=== PATIENT | female | born 1980 | race Caucasian/White ===

== ENCOUNTER → 2019-04-17 13:25 | Outpatient (CLI) | payer OTHER, SELFPAY | PROVIDERS: PCP Family Medicine; Visit Provider Family Medicine | DX: M54.12 Radiculopathy, cervical region (principal) | CPT/HCPCS: 95885; 95886; 95911 ==

== ENCOUNTER 2019-06-24 08:46 | Outpatient (CLI) | payer OTHER, SELFPAY ==
[2019-06-24] VITALS (9 sets, daily range): BP systolic 109–143; BP diastolic 83–95; PULSE 71–90; RESP 16–20; TEMP 36.2; O2SAT 97–100
--- NOTE | 2019-06-24 08:56 | DI.RAD.S_ITS ---
PROCEDURE: PAIN C/T FACET INJ/BLK 1ST L INDICATIONS: HEADACHES FINDINGS: Fluoroscopic spot filming was performed to verify placement of spinal needles at the C4-C5 and C5-C6 level(s), as labeled on the films. Appropriate location(s) of the needle tip(s) was confirmed by injection of iodinated contrast. IMPRESSION: Fluoroscopy for pain management. Dictated by: Donovan Bryson M.D. on 06/24/2019 at 10:28 Approved by: Donovan Bryson M.D. on 06/24/2019 at 10:29
[2019-06-24] MEDS: fentaNYL 100 MCG/2 ML INJ 50 MCG IV (09:52)
[2019-06-24] MEDS: MIDAZOLAM 5 MG/5 ML VIAL IV (09:52)
[2019-06-24] MEDS: BUPIVACAINE 0.5% (PF) VIAL 2 ML INJ (10:04)
[2019-06-24] MEDS: DEXAMETHASONE 10 MG/ML VIAL 20 MG INJ (10:04)
[2019-06-24] MEDS: IOPAMIDOL 15 ML VIAL 3 ML INJ (10:04)
--- NOTE | 2019-06-24 10:05 | PC.NURSE ---
ASSISTING PT OFF TABLE AND TRANSPORTING TO POST PROC AREA IN STABLE CONDITION. PASSING RN CARE OF PT OFF TO ROSLYN Craig RN.
--- NOTE | 2019-06-24 10:10 | P.PCN_ITS ---
Procedures Date/Time Date of procedure: 06/24/19 Time of procedure: 10:10 General Procedure description: PREOP DIAGNOSIS 1. FACET ARTHROPATHY 2. AXIAL NECK PAIN POST OP DIAGNOSIS 1. FACET ARTHROPATHY 2. AXIAL NECK PAIN PROCEDURES 1. FLUOROSCOPICALLY GUIDED, CONTRAST-CONTROLLED LEFT C4/5, C5/6 FACET JOINT INJECTIONS PHYSICIAN: Doron Hernandez, DO INDICATIONS Lora is referred by Dr. Sykes for treatment of Axial Neck Pain DESCRIPTION OF PROCEDURE Fluoroscopically guided, contrast-controlled left C4/5, C5/6 facet joint injections with conscious sedation. Following review of allergy and review of potential side effects and complications, including, but not necessarily limited to, infection, allergic reaction, local tissue breakdown, stroke, temporary or permanent nerve injury and paralysis, the patient indicated that the patient understood and agreed to proceed. An informed consent document was signed by the patient, witnessed by a nurse, and placed in the patient's chart. Additionally, other treatment options including medications, modalities, and physical therapy were reviewed with the patient. After review of previous anaesthesic history and IV conscious sedation the patient was deemed safe to proceed with todays procedure with IV conscious sedation as ASA class II designation. Safety time-out was performed to confirm patient ID, procedure to be performed and site of procedure. IV sedation was ac complished with a combination of 3mg of Versed and 50mcg of Fentanyl was administered by the RN after DO order, titrated to patient comfort during the course of the procedure while the patient remained responsive to all verbal commands In the prone position, following sterile prep and drape of the cervical spine region, the posterior aspect of the right C4/5, C5/6 facet joints were identified fluoroscopically. The skin was anesthetized via a 25-gauge 1.5-inch needle with 1% lidocaine solution into the corresponding facet joints. At this point, a 25-gauge 2.5-inch spinal needle was atraumatically introduced and advanced under fluoroscopic guidance into the corresponding facet joints. Following negative aspiration, injections of approximately 0.2-cc of Isovue 200 confirmed interarticular placement without vascular uptake. At this point, a total of 1 cc including 0.5 cc or 5mg of dexamethasone combined with 0.5cc of 1% lidocaine solution was injected without complication into each of the corresponding facet joints. The patient tolerated the procedure well without signs or symptoms of complications prior to transfer to the recovery area continued monitoring without incident. The patient was then transferred to the recovery area where they were observed for an appropriate period of time after the injection. The patient reported a VAS score of 7 prior to the procedure and a post- procedure VAS of 0. Total Fluoroscopy Time: 20.5 seconds Total Conscious Sedation Time: 24 min POST OP INSTRUCTIONS They were provided a Pain Log to continue to record their response to the target-specific procedure prior to their follow-up visit with their referring physician. Additionally, specific post-injection care instructions and a contact number to our office were provided if concerns arise regarding possible complications associated with the procedure are suspected. Doron Hernandez DO Complications: none
== END 2019-06-24 10:33 | disposition home or self-care (01) ==
LOC: RAD 08:48
PROVIDERS: PCP Family Medicine; Visit Provider Physical Medicine & Rehabilitation
DX: M47.812 Spondylosis without myelopathy or radiculopathy, cervical region (principal); M54.2 Cervicalgia; R51 Headache
CPT/HCPCS: 64490; 64491; 99152; J1100; J2250; J3010

== ENCOUNTER → 2019-11-12 07:28 | Outpatient (CLI) | payer OTHER, SELFPAY ==
--- NOTE | 2019-11-12 07:30 | DI.RAD.S_ITS ---
PROCEDURE: XR LUMBAR SPINE MIN 4V INDICATIONS: chronic necl TECHNIQUE: 4 views of the lumbar spine were acquired. COMPARISON: None. FINDINGS: Bones: 5 [id number] vertebrae are present. There is normal bony alignment. No vertebral body compression fractures. No suspicious bony lesions. There is mild degenerative spurring at L4-L5 with preserved disc height. Soft tissues: Overlying bowel gas pattern is normal. No suspicious soft tissue calcifications. Note is made of an IUD. Oblique images: No pars defects. IMPRESSION: Mild degenerative spurring at L4-L5. Dictated by: Donovan Bryson M.D. on 11/12/2019 at 9:13 Approved by: Donovan Bryson M.D. on 11/12/2019 at 9:16
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
== END ==
PROVIDERS: PCP Family Medicine; Referring Provider Physical Medicine & Rehabilitation; Visit Provider Physical Medicine & Rehabilitation
DX: M47.812 Spondylosis without myelopathy or radiculopathy, cervical region (principal); M54.2 Cervicalgia; M54.5 Low back pain; G89.29 Other chronic pain
CPT/HCPCS: 72050; 72110

== ENCOUNTER → 2020-10-08 06:56 | Outpatient (CLI) | payer OTHER, SELFPAY ==
[2020-10-11 10:13] LABS: COVID19 -Nasal RAPID Negative (Negative)
== END ==
PROVIDERS: PCP Family Medicine; Visit Provider Physical Medicine & Rehabilitation
DX: Z20.822 Contact with and (suspected) exposure to COVID-19 (principal)
CPT/HCPCS: 87635

== ENCOUNTER 2020-10-12 08:49 | Outpatient (CLI) | payer OTHER, SELFPAY ==
[2020-10-12] VITALS (9 sets, daily range): BP systolic 129–155; BP diastolic 81–98; PULSE 79–93; RESP 13–19; TEMP 36.7; O2SAT 99–100
--- NOTE | 2020-10-12 09:46 | DI.RAD.S_ITS ---
PROCEDURE: PAIN C/T FACET INJ/BLK 1ST L INDICATIONS: SPINAL STENOSIS COMPARISON: [facility], , PAIN C/T FACET INJ/BLK 1ST L, 06/24/2019, 9:55. FINDINGS: Fluoroscopic spot filming was performed to verify placement of spinal needles at the C4-C5 and C5-C6 levels on the right, as labeled on the films. Appropriate location(s) of the needle tip(s) was confirmed by injection of iodinated contrast. IMPRESSION: Intraprocedural examination within normal limits. Dictated by: Stuart Wynne M.D. on 10/12/2020 at 10:00 Approved by: Stuart Wynne M.D. on 10/12/2020 at 10:00
[2020-10-12] MEDS: fentaNYL 100 MCG/2 ML INJ 50 MCG IV ×2 (09:49→09:58)
[2020-10-12] MEDS: MIDAZOLAM 5 MG/5 ML VIAL IV (09:50)
[2020-10-12] MEDS: IOPAMIDOL 15 ML VIAL 3 ML INJ (09:52)
[2020-10-12] MEDS: BUPIVACAINE 0.5% (PF) VIAL 2 ML INJ (09:52)
[2020-10-12] MEDS: LIDOCAINE 1% 20 ML 10 ML INJ (09:53)
[2020-10-12] MEDS: DEXAMETHASONE 10 MG/ML VIAL 20 MG INJ (09:53)
--- NOTE | 2020-10-12 10:05 | P.PCN_ITS ---
Date/Time/Diagnoses Date of procedure: 10/12/20 Time of procedure: 10:06 Pre-procedure diagnosis: 1. FACET ARTHROPATHY 2. AXIAL NECK PAIN Post-procedure diagnosis: same Procedure Notes Procedure: 1. FLUOROSCOPICALLY GUIDED, CONTRAST-CONTROLLED RIGHT C4/5, C5/6 FACET JOINT INJECTIONS WITH CONSCIOUS SEDATION. Indications: Lora is referred by Dr. Sykes for treatment of Axial Neck Pain Physician: Doron Hernandez Total Fluoroscopy time (seconds): 11 Total sedation minutes: 16 Complications: none Procedure in detail & Post-procedure care: DESCRIPTION OF PROCEDURE Fluoroscopically guided, contrast-controlled right C4/5, C5/6 facet joint injections with conscious sedation. Following review of allergy and review of potential side effects and complications, including, but not necessarily limited to, infection, allergic reaction, local tissue breakdown, stroke, temporary or permanent nerve injury and paralysis, the patient indicated that the patient understood and agreed to proceed. An informed consent document was signed by the patient, witnessed by a nurse, and placed in the patient's chart. Additionally, other treatment options including medications, modalities, and physical therapy were reviewed with the patient. After review of previous anaesthesic history and IV conscious sedation the patient was deemed safe to proceed with today?s procedure with IV conscious sedation as ASA class II designation. Safety time-out was performed to confirm patient ID, procedure to be performed and site of procedure. IV sedation was accomplished with a combination of 5mg of Versed and 100mcg of Fentanyl was administered by the RN after DO order, titrated to patient comfort during the course of the procedure while the patient remained responsive to all verbal commands In the prone position, following sterile prep and drape of the cervical spine region, the posterior aspect of the right C4/5, C5/6 facet joints were identified fluoroscopically. The skin was anesthetized via a 25-gauge 1.5-inch needle with 1% lidocaine solution into the corresponding facet joints. At this point, a 25-gauge 2.5-inch spinal needle was atraumatically introduced and advanced under fluoroscopic guidance into the corresponding facet joints. Following negative aspiration, injections of approximately 0.2-cc of Isovue 200 confirmed interarticular placement without vascular uptake. At this point, a total of 1cc including 0.5cc or 5mg of dexamethasone combined with 0.5cc of 1% lidocaine solution was injected without complication into each of the corresponding facet joints. The procedure tolerated the procedure well without signs or symptoms of complications prior to transfer to the recovery area continued monitoring without incident. The patient was then transferred to the recovery area where they were observed for an appropriate period of time after the injection. The patient reported a VAS score of 7 prior to the procedure and a post- procedure VAS of 0. POST OP INSTRUCTIONS They were provided a Pain Log to continue to record their response to the target-specific procedure prior to their follow-up visit with their referring physician. Additionally, specific post-injection care instructions and a contact number to our office were provided if concerns arise regarding possible complications associated with the procedure are suspected.
== END 2020-10-12 10:35 | disposition home or self-care (01) ==
PROVIDERS: PCP Family Medicine; Referring Provider Family Medicine; Visit Provider Physical Medicine & Rehabilitation
DX: M47.812 Spondylosis without myelopathy or radiculopathy, cervical region (principal); R51.9 Headache, unspecified; M54.2 Cervicalgia; M48.02 Spinal stenosis, cervical region
CPT/HCPCS: 64490; 64494; 99152; J1100; J2250; J3010

== ENCOUNTER 2021-01-13 08:55 | Outpatient (CLI) | payer OTHER, SELFPAY ==
[2021-01-13] VITALS (7 sets, daily range): BP systolic 123–153; BP diastolic 80–93; PULSE 82–95; RESP 10–19; TEMP 36.4; O2SAT 99–100
--- NOTE | 2021-01-13 08:56 | DI.RAD.S_ITS ---
PROCEDURE: PAIN C/T INTERLAMINAR INJECT INDICATIONS: SPINAL STENOSIS COMPARISON: None. FINDINGS: Fluoroscopic spot filming was performed to verify placement of spinal needles at the C6-7 level(s), as labeled on the films. Appropriate location(s) of the needle tip(s) was confirmed by injection of iodinated contrast. IMPRESSION: Expected location of the needle and contrast for a C6-7 translaminar epidural steroid injection. Dictated by: Terri Jerry M.D. on 01/13/2021 at 14:27 Approved by: Terri Jerry M.D. on 01/13/2021 at 14:28
[2021-01-13] MEDS: fentaNYL 100 MCG/2 ML INJ 50 MCG IV (10:16)
[2021-01-13] MEDS: MIDAZOLAM 5 MG/5 ML VIAL IV (10:16)
[2021-01-13] MEDS: DEXAMETHASONE 10 MG/ML VIAL 30 MG INJ (10:21)
[2021-01-13] MEDS: BUPIVACAINE 0.25% (PF) VIAL 2 ML INJ (10:21)
[2021-01-13] MEDS: IOPAMIDOL 15 ML VIAL 3 ML INJ (10:21)
--- NOTE | 2021-01-13 10:52 | P.PCN_ITS ---
Date/Time/Diagnoses Date of procedure: 01/13/21 Time of procedure: 10:52 Pre-procedure diagnosis: 1. CERVICAL STENOSIS, 2. CERVICAL HNP WITH UPPER EXTREMITY RADICULAR FEATURES Post-procedure diagnosis: same Procedure Notes Procedure: 1. FLUORSCOPICALLY GUIDED CONTRAST CONTROLLED INTERLAMINAR EPIDURAL STEROID INJECTION - C6/7 TL YEIMI Indications: Lora is referred by Dr. Sykes for treatment of Cervical HNP with Upper Extremity Paresthesias. Physician: Doron Hernandez Total Fluoroscopy time (seconds): 23 Total sedation minutes: 10 Complications: none Procedure in detail & Post-procedure care: FINDINGS Cervical Stenosis due to disc deterioration and nerve root irritation and nerve root irritation DESCRIPTION OF PROCEDURE Fluoroscopically guided, contrast-controlled C6/7 translaminar epidural steroid injection with conscious sedation. Following review of allergy and review of potential side effects and complications, including, but not necessarily limited to, infection, allergic reaction, local tissue breakdown, temporary as well as permanent nerve injury, stroke, paralysis, and possible , the patient indicated that patient understood and agreed to proceed. An informed consent document was signed by the patient, witnessed by a nurse, and placed in the patient's chart. Additionally, other treatment options including modalities, medications, and physical therapy were reviewed with the patient. After review of previous anaesthesic history and IV conscious sedation the patient was deemed safe to proceed with today?s procedure with IV conscious sedation as ASA class II designation. Safety time-out was performed to confirm patient ID, procedure to be performed and site of procedure. IV sedation was accomplished with a combination of 3mg of Versed and 50mcg of Fentanyl administered by the RN after DO order, titrated to patient comfort during the course of the procedure while the patient remained responsive to all verbal commands. In the prone position, following sterile prep and drape of the cervical region, the C6/7 translaminar space was identified fluoroscopically. The skin was anesthetized via a 25-gauge 1.5-inch needle with 1% lidocaine solution. At this point, a 25-gauge, 2.5-inch short bevel spinal needle was atraumatically introduced and advanced under fluoroscopic guidance into epidural space at the C6/7 translaminar space. Depth was confirmed on lateral view. Radiological data, including multiple fluoroscopic views of the cervical spine, reveal a spinal needle at the C6/7 translaminar space. Lateral views then show placement of the needle in the epidural space. Subsequent views show contrast material flowing superiorly and inferiorly in the epidural space. DSA fluoroscopy with live contrast injection, once again, confirmed no vascular or intrathecal uptake. At this point, using loss of resistance technique with saline and air, the epidural space was entered. Following negative aspiration, injection of sixto roximately 1.5 cc of Isovue-200 with live fluoroscopy in the AP view confirmed epidural flow in the epidural space without vascular or intrathecal uptake observed. Subsequently, a test dose of 1 cc of 1% lidocaine solution was injected and patient was observed for two minutes without signs or symptoms of complications, including abdominal pain, shortness of breath, bilateral upper or lower extremity weakness, nausea and vomiting, prior to steroid injection. At this point, 3cc or 30mg of dexamethasone was then injected without incident. The patient tolerated the procedure well without signs or symptoms of complications prior to being transferred to the recovery area for further monitoring, The patient was then transferred to the recovery area where they were observed for an appropriate period of time after the injection. The patient reported a VAS score of 6 prior to the procedure and a post-procedure VAS of 0. POST OP INSTRUCTIONS The patient was provided a Pain Log to continue to record their response to the target-specific procedure prior to follow-up visit with the referring provider. Additionally, specific post-injection care instructions and a contact number to our office were provided if concerns arise regarding possible complications associated with the procedure are suspected.
== END 2021-01-13 10:47 | disposition home or self-care (01) ==
LOC: RAD 08:56
PROVIDERS: PCP Family Medicine; Referring Provider Physical Medicine & Rehabilitation; Visit Provider Physical Medicine & Rehabilitation
DX: M48.02 Spinal stenosis, cervical region (principal); M50.123 Cervical disc disorder at C6-C7 level with radiculopathy
CPT/HCPCS: 62321; 99152; J1100; J2250; J3010

== ENCOUNTER → 2021-04-09 11:27 | Outpatient (CLI) | payer OTHER, SELFPAY ==
--- NOTE | 2021-04-09 11:28 | DI.MRI.S_ITS ---
PROCEDURE: MR CERVICAL SPINE WO CON INDICATIONS: chronic progressive axial neck pain TECHNIQUE: Noncontrast sagittal T1 spin echo and T2 fast spin echo, sagittal STIR, foraminal oblique sagittal T2 fast spin echo, and axial gradient echo or T2 fast spin echo through the cervical spine. COMPARISON: None. FINDINGS: Image quality: Excellent. Alignment and Curvature: There is normal bony alignment. Bone Marrow: Marrow demonstrates normal overall signal. Spinal Cord: Visualized spinal cord has normal size and signal. No cerebellar tonsillar herniation. Paraspinous Soft Tissues: No paravertebral masses. Prevertebral soft tissues are normal in thickness. C2-C3: Normal appearance. C3-C4: Annular tear with a diffuse disc bulge and bilateral foraminal protrusions cause moderate bilateral foraminal stenosis. The central canal has mild stenosis. C4-C5: Normal appearance. C5-C6: Normal appearance. C6-C7: Normal appearance. C7-T1: Normal appearance. IMPRESSION: 1. C3-4 annular tear with a diffuse disc bulge and bilateral foraminal protrusions cause moderate bilateral foraminal stenosis and mild central canal stenosis. 2. No abnormal cord signal. Dictated by: Cody Crenshaw M.D. on 04/10/2021 at 10:46 Approved by: Cody Crenshaw M.D. on 04/10/2021 at 10:51
== END ==
PROVIDERS: PCP Family Medicine; Referring Provider Physical Medicine & Rehabilitation; Visit Provider Physical Medicine & Rehabilitation
DX: R51.9 Headache, unspecified (principal); M50.21 Other cervical disc displacement, high cervical region
CPT/HCPCS: 72141